=== PATIENT | male | born 1985 | race Caucasian/White ===

== ENCOUNTER 2016-08-27 18:07 | Emergency (ER) | payer OTHER ==
[~2016-08-27] VITALS: Ht 157.4 cm; Wt 108.9 kg
[~2016-08-27 18:07] MED LIST: AMOXICILLIN500 MG PO; AUGMENTIN 875 M1 TAB PO; CLARITIN10 MG PO; LOMOTIL 0.025 M1 TAB PO; NAPROSYN500 MG PO; TRAMADOL HCL50 MG PO; ULTRAM50 MG PO
[2016-08-27] MEDS ORDERED: PROBIOTIC250 MG PO (18:11)
[2016-08-27 18:12] VITALS: BP 130/82
[2016-08-27] MEDS ORDERED: ADIPEX-P37.5 MG PO (18:12)
[2016-08-27] MEDS ORDERED: NAPROSYN500 MG PO (18:17)
== END 2016-08-27 19:07 | disposition home or self-care (01) ==
LOC: ED 18:07
DX: S90.31XA Contusion of right foot, initial encounter (principal); R03.0 Elevated blood-pressure reading, without diagnosis of hypertension; Z90.49 Acquired absence of other specified parts of digestive tract; W21.09XA Struck by other hit or thrown ball, initial encounter; Y93.6A Activity, physical games generally associated with school recess, summer camp and children; Y92.9 Unspecified place or not applicable; Y99.9 Unspecified external cause status

== ENCOUNTER 2021-10-12 16:37 | Emergency (ER) | payer OTHER ==
[~2021-10-12] VITALS: Wt 99.8 kg
[~2021-10-12 16:37] MED LIST changes: +ADIPEX-P37.5 MG PO; +PROBIOTIC250 MG PO
[2021-10-12 16:52] VITALS: BP 136/90
[2021-10-12] MEDS ORDERED: CEPHALEXIN500 M1 PO (18:30)
== END 2021-10-12 18:29 | disposition home or self-care (01) ==
LOC: ED 16:37
DX: S60.455A Superficial foreign body of left ring finger, initial encounter (principal); Z79.899 Other long term (current) drug therapy; Z90.49 Acquired absence of other specified parts of digestive tract; W22.8XXA Striking against or struck by other objects, initial encounter; Y93.89 Activity, other specified; Y92.89 Other specified places as the place of occurrence of the external cause; Y99.8 Other external cause status